=== PATIENT | male | born 1965 | race Caucasian/White ===

== ENCOUNTER 2017-04-03 21:35 | Inpatient (IN) | payer OTHER ==
[~2017-04-03] VITALS: Ht 182.9 cm; Wt 88.5 kg
--- NOTE | 2017-04-03 23:00 | NUR ---
PRE-ADMISSION NOTE Px is a 51 y/o male, seen at intake, A&Ox4, no SOB very anxious and nauseated. Discussed with patient the admission policies of the unit. Patient is coherent and able to respond to questions appropriately. Px is on wheelchair duty to unsteady gait and intoxication. Vital signs taken and as follows: BP: 134/88, P: 118, R: 18, O2: 97%, T: 98.7, PA: 3. Px verbalized understanding of instructions and teachings regarding disposal of narcotic and other controlled home medications, unit protocols such as taking of vital signs Q4H and handling and disposal of contraband. We'll continue with admission upon px's arrival on the unit.
[2017-04-04] VITALS: BP 151/101
[2017-04-04] MEDS ORDERED: LORAZEPAM 1 MG TABLET PO PRN
[2017-04-04] MEDS ORDERED: DICYCLOMINE HCL 20 MG TABLET PO PRN
[2017-04-04] MEDS ORDERED: MAG HYDROX/AL HYDROX/SIMETH 30 ML LIQUID UDC PO PRN
[2017-04-04] MEDS ORDERED: IV NORMAL SALINE 100 ML BAG IV SCH
[2017-04-04] MEDS ORDERED: MAGNESIUM HYDROXIDE 30 ML LIQUID UDC PO PRN
[2017-04-04] MEDS ORDERED: ONDANSETRON 4 MG/2 ML VIAL IM PRN
[2017-04-04] MEDS ORDERED: THIAMINE HCL 200 MG/2 ML VIAL IM ONE
[2017-04-04] MEDS ORDERED: MIRALAX 17 GM POWD.PACK PO PRN
[2017-04-04] MEDS ORDERED: LORAZEPAM 2 MG/1 ML VIAL IM PRN
[2017-04-04] MEDS ORDERED: LOPERAMIDE HCL 2 MG CAPSULE PO PRN ×2
--- NOTE | 2017-04-04 | NUR ---
ADMISSION NOTES Debra is a 51 y/o male admitted on 04/03/17 for ETOH dependence, arrived on the unit at 2332. Px has allergies to Vicodin, had 1x seizure last 3 or 4 years ago. Px was able to provide UDS. Upon admission CIWA 21, BP: 151/101, P: 120, R: 18, O2: 97%, T: 97.7, PA: 3. Weight 195, height 6. Px reports he does have a PCP Dr. Lidia Box. Px smokes 1 pack daily, denies being hospitalized within past 30 days. Px is able to understand and respond to all questions pertaining to his hospitalization. Substance Abuse History is as follows: 1. Vodka 1 L daily for 8 straight days. Last drink 04/03/2017 1 L. Px was drinking for 30 years. Pxs longest sober period was 19 years from 1980 to 1999. Treatment history: Debra reports 1st detox tx was on December 2016, cant recall the place. PMH: Anxiety, depression, DM, seizure, HTN, asthma, pancreatitis. Px brought his medications for reconciliation. Upon assessment, px is A&Ox4, px is moderately intoxicated, presents with high anxiety, skin is flushed, and emeses. Respirations even and unlabored. Denies SOB, chest pain, N/V/D. Bowel sounds active x 4, abdomen soft. PERRLA. Skin intact, no open wounds noted. Px denies SI/HI. Educational information provided and left at bedside. Px oriented to room and encouraged to notify staff with any concerns. Safety measures in place. Call light within reach, side rails up padded x 2, bed locked and in low position. We'll continue to monitor.
--- NOTE | 2017-04-04 00:02 | NUR ---
Patient had multiple episodes of vomiting. Initiated 1:1 for safety. [place] at bedside. Notified Dr. Stack. he gave orders for Zofran 4mg IM q6h PRN and IV NS 150mL/hr. Orders were read back and verified.
[2017-04-04] MEDS ORDERED: ONDANSETRON 4 MG/2 ML VIAL ONE (00:22)
[2017-04-04] MEDS ORDERED: AMLO10TA2 PO (00:45)
[2017-04-04] MEDS ORDERED: ATOR40TA PO ×2 (00:45)
[2017-04-04] MEDS ORDERED: INSU100V11 (00:45)
[2017-04-04] MEDS ORDERED: LISI40TA4 PO (00:45)
[2017-04-04] MEDS ORDERED: FLUO40CA49 PO (00:45)
[2017-04-04] MEDS ORDERED: INSU200I SQ (00:45)
[2017-04-04] MEDS ORDERED: METO-306 PO (00:45)
[2017-04-04] MEDS ORDERED: FURO40TA5 PO (00:45)
[2017-04-04] MEDS ORDERED: GLIP5TAB26 PO (00:45)
[2017-04-04] MEDS ORDERED: INSU100V11 SQ (00:45)
[2017-04-04] MEDS ORDERED: AMYL1CAP58 PO (00:45)
[2017-04-04] MEDS ORDERED: INSU100I19 SQ (00:45)
--- NOTE | 2017-04-04 00:53 | NUR ---
RN note One-time Ativan Pt noted to have jerking movement, with increasing anxiety and agitation. Notified Dr. Stack and he ordered Ativan 2 mg one-time PO. Primary nurse to administer.
[2017-04-04] MEDS ORDERED: LORAZEPAM 1 MG TABLET PO ONE (01:00)
[2017-04-04 01:06] LABS: BASOPHILS % (AUTO) 0.7 % (0.0-2.0); BILIRUBIN,TOTAL 1.6 mg/dL (0.2-1.0); EOSINOPHILS % (AUTO) 0.7 % (0.0-7.0); LYMPHOCYTES # (AUTO) 1.2 K/UL (0.8-4.8); LYMPHOCYTES % (AUTO) 18.3 % (20.5-51.5); MAGNESIUM 1.9 mg/dL (1.8-2.4); MEAN CORPUSCULAR HEMOGLOBIN 29.6 UUG (27.0-31.0); MEAN CORPUSCULAR HGB CONC 33 g/dL (32.0-37.0); MEAN CORPUSCULAR VOLUME 88.6 FL (82.0-92.0); MONOCYTES # (AUTO) 0.4 K/UL (0.1-1.30); MONOCYTES % (AUTO) 5.6 % (0.0-11.0); NEUTROPHILS # (AUTO) 5.1 K/UL (1.8-8.9); NEUTROPHILS % (AUTO) 74.7 % (38.5-71.5); PLATELET COUNT (AUTO) 121 K/UL (150-450); POTASSIUM 3.6 mmol/L (3.5-5.1); RED BLOOD CELL COUNT(AUTO) 5.41 MIL/UL (4.7-6.1); TOTAL PROTEIN, SERUM 7.3 g/dL (6.4-8.2); WHITE BLOOD COUNT (AUTO) 6.7 K/UL (4.0-11.2)
[2017-04-04] MEDS ORDERED: THIAMINE HCL 200 MG/2 ML VIAL ONE (01:12)
[2017-04-04] MEDS ORDERED: LORAZEPAM 1 MG TABLET ONE ×2 (01:12→05:14)
[2017-04-04 01:23] LABS: *AMPHETAMINE, URINE NEGATIVE (NEGATIVE); *BARBITURATE, URINE NEGATIVE (NEGATIVE); *CANNABINOID, URINE NEGATIVE (NEGATIVE); *COCCAINE, URINE NEGATIVE (NEGATIVE); *OPIATE, URINE NEGATIVE (NEGATIVE); *PHENCYCLIDINE SCREEN,URINE NEGATIVE (NEGATIVE)
[2017-04-04] MEDS ORDERED: IV NS 1000 ML 1,000 ML IV PRN (01:30)
--- NOTE | 2017-04-04 01:45 | NUR ---
IV Access Peripheral IV access started on right dorsal hand aseptically 22 G, with good blood return, flushed with 10 cc NS. Px tolerated well. We'll continue to monitor.
--- NOTE | 2017-04-04 01:51 | NUR ---
IVF NS IVF NS 1 L hooked as hydration running at 150 cc/hr every 6 hours PRN. We'll continue to monitor.
[2017-04-04] MEDS ORDERED: DEXTROSE 50% 50 ML DISP.SYRIN IV PRN (03:00)
[2017-04-04] MEDS: BLOOD SUGAR DIAGNOSTIC 1 EACH STRIP VI SCH ×5 (03:42→21:13)
--- NOTE | 2017-04-04 03:42 | NUR ---
Accucheck Blood sugar 277 mg/dl. Humulin R 6 "u" given SQ on right deltoid. We'll continue to monitor.
[2017-04-04] MEDS: INSULIN REGULAR, HUMAN 300 UNIT/3 ML VIAL SQ PRN ×4 (03:54→21:01)
[2017-04-04 04:00] VITALS: BP 145/91
[2017-04-04] MEDS ORDERED: INSULIN REGULAR, HUMAN 300 UNIT/3 ML VIAL ONE (04:05)
[2017-04-04] MEDS: LORAZEPAM 1 MG TABLET PO PRN ×2 (05:04→09:07)
--- NOTE | 2017-04-04 05:04 | NUR ---
PRN Ativan Px was very anxious and in pain 6-12/08. CIWA 16. Ativan 1 mg/tab, 2 tabs given PO as PRN med. We'll continue to monitor.
[2017-04-04] MEDS: IBUPROFEN 400 MG TABLET PO PRN ×2 (05:09→21:04)
[2017-04-04] MEDS: ACETAMINOPHEN 325 MG TABLET PO PRN (05:09)
--- NOTE | 2017-04-04 05:09 | NUR ---
PRN Motrin and Tylenol Px has pain on left side of body. Motrin 400 mg/tab, 1 tab and Tylenol 325 mg/tab, 2 tabs given PO as PRN meds. We'll continue to monitor.
[2017-04-04] MEDS ORDERED: IBUPROFEN 400 MG TABLET ONE (05:24)
[2017-04-04] MEDS ORDERED: ACETAMINOPHEN 325 MG TABLET ONE (05:24)
--- NOTE | 2017-04-04 07:30 | NUR ---
START OF SHIFT Pt 51 y/o male admitted for etoh dependence. Pt received in room on bed with eyes closed resting, but easily arousable to name. Pt alert and oriented to name, place, and time. Perrla. Skin warm and mosit to touch. Respirations even and unlabored. Bilateral hand tremors noted. IV was dislodged by pt by accident. Pt restart peripheral IV. Pt with sitter 1:1 for safety for unsteady gait and pt is aware of 1:1. No signs/ symptoms of hypo/ hyperglycemia noted this morning. I was reported that pt slept for 1.5 hours last night. Bed on lowest position with side rails x2 up for safety. Call light within reach. No distress noted at this time.
--- NOTE | 2017-04-04 07:40 | NUR ---
End of Shift Notes Debra is a 51 y/o male admitted on 04/03/17 for ETOH dependence. Px has allergies to Vicodin, had 1x seizure last 3 or 4 years ago. PMH: Anxiety, depression, DM, seizure, HTN, asthma, pancreatitis. Px brought his medications for reconciliation. Upon assessment, px is A&Ox4. Respirations even and unlabored. At 0145, Peripheral IV access started on right dorsal hand aseptically 22 G, with good blood return, flushed with 10 cc NS. Px tolerated well. IVF NS 1 L hooked as hydration running at 150 cc/hr every 6 hours PRN. At 0345, Blood sugar 277 mg/dl. Humulin R 6 "u" given SQ on right deltoid. At 0504, Px was very anxious and in pain 6-8/10. CIWA 16. Ativan 1 mg/tab, 2 tabs given PO as PRN med. At 0509, Px has pain on left side of body. Motrin 400 mg/tab, 1 tab and Tylenol 325 mg/tab, 2 tabs given PO as PRN med. Safety measures in place. Call light within reach, side rails up padded x 2, bed locked and in low position. We'll continue to monitor.
[2017-04-04 08:00] VITALS: BP 103/53
[2017-04-04] MEDS: ONDANSETRON 4 MG/2 ML VIAL IM PRN ×2 (08:41→18:20)
--- NOTE | 2017-04-04 08:41 | NUR ---
PRN Pt with multiple vomit episodes. Zofran IM prn per MD order given and tolerated well.
[2017-04-04] MEDS ORDERED: TUBERCULIN,PURIF.PROT.DERIV. 5 TU/0.1 ML TEST ID ONE (09:00)
[2017-04-04] MEDS: FOLIC ACID 1 MG TABLET PO SCH (09:07)
--- NOTE | 2017-04-04 09:07 | NUR ---
PRN Pt with ciwa=17. Ativan 2mg po prn per MD order given and tolerated well.
[2017-04-04] MEDS: MULTIVITAMINS,THERAPEUTIC TABLET PO SCH (09:08)
[2017-04-04] MEDS: DOCUSATE SODIUM 250 MG CAPSULE PO SCH (09:08)
[2017-04-04] MEDS: THIAMINE HCL 100 MG TABLET PO SCH (09:08)
--- NOTE | 2017-04-04 09:41 | NUR ---
PRN EVAL Pt with no vomit episode.
--- NOTE | 2017-04-04 10:07 | NUR ---
PRN EVAL Pt with ciwa=4
[2017-04-04] MEDS ORDERED: METOPROLOL SUCCINATE XL 100 MG TAB.SR.24H PO SCH (10:30)
[2017-04-04] MEDS: AMLODIPINE 10 MG TABLET PO SCH (11:56)
[2017-04-04 12:00] VITALS: BP 141/92
[2017-04-04] MEDS: LIPASE/PROTEASE/AMYLASE 4200 UNITS CAPSULE.DR PO SCH ×2 (12:01→17:47)
[2017-04-04] MEDS: glipiZIDE XL 5 MG TABCR PO SCH (12:02)
[2017-04-04] MEDS: METOPROLOL SUCCINATE XL 50 MG TAB.SR.24H PO SCH (12:02)
[2017-04-04] MEDS: LORAZEPAM 1 MG TABLET PO SCH ×3 (12:20→21:04)
[2017-04-04] MEDS: INSULIN DETEMIR 300 UNIT/3 ML CARTRIDGE SQ SCH (12:34)
[2017-04-04] MEDS: ONDANSETRON ODT 4 MG TAB.RAPDIS SL PRN (14:23)
--- NOTE | 2017-04-04 14:23 | NUR ---
PRN Pt with nausea noted. Zofran odt prn per MD order given and tolerated well.
[2017-04-04] MEDS: FLUOXETINE HCL 20 MG CAPSULE PO SCH (14:46)
[2017-04-04] MEDS: HYDROXYZINE PAMOATE 25 MG CAPSULE PO PRN ×2 (14:47→22:31)
--- NOTE | 2017-04-04 14:47 | NUR ---
PRN Pt with ciwa=10. Ativan 1mg po prn per MD order given and tolerated well.
--- NOTE | 2017-04-04 15:23 | NUR ---
PRN EVAL Pt denies any nausea at this time.
--- NOTE | 2017-04-04 15:47 | NUR ---
PRN EVAL Pt with ciwa=4.
[2017-04-04 16:00] VITALS: BP 144/83
[2017-04-04] MEDS ORDERED: NICOTINE POLACRILEX 4 MG GUM-PK OF TEN BC PRN (17:30)
[2017-04-04] MEDS: NICOTINE 14 MG/24HR PATCH TD SCH (17:48)
--- NOTE | 2017-04-04 18:49 | NUR ---
END OF SHIFT PT IS A/O X4, RESPIRATIONS EVEN AND UNLABORED. PT REPORTS HIGH ANXIETY THROUGHOUT THE DAY, RESTLESSNESS, BODY ACHES, INTERMITTENT CHILLS AND SWEATING. PT APPEARS AGITATED AND TREMORS ARE NOTED. PT LAST CIWA IS 13 AT 1600. PT HAD INTERMITTENT N/V THROUGHOUT THE DAY AND WAS GIVEN ZOFRAN PRN; PT REPORTED EFFECTIVE UPON REASSESSMENT. ENCOURAGED PT TO CONSUME MORE FLUIDS TO PROMOTE DETOX PROCESS AND REHYDRATION. SZ AND FALL PRECAUTIONS TAKEN. SIDE RAILS UP X2, CALL LIGHT WITHIN REACH. WILL GIVE ALL ENDORSEMENT TO RUG RENOVATOR NURSE. Addendum: 04/04/17 at 1851 by KANU ARTIS RN *
[2017-04-04] MEDS: CLONIDINE HCL 0.1 MG TABLET PO PRN (18:57)
--- NOTE | 2017-04-04 18:57 | NUR ---
PRN CLONIDINE O.1 MG PO PRN GIVEN AT 1857 FOR ANXIETY, RESTLESSNESS, AND SWEATING.
[2017-04-04 20:00] VITALS: BP 138/83
--- NOTE | 2017-04-04 20:00 | NUR ---
Start of Shift Notes Received a 51 y/o male admitted 04/03/2017 for etoh dependence. Px is Full Code, has allergies on Vicodin and on DM diet. Px with sitter 1:1 for safety for unsteady gait. During the rounds at 2000, px complained of high anxiety, tremors, H/A and body aches of 8-9/10. Bed on lowest position with side rails x2 up for safety. Call light within reach. We'll continue to monitor.
[2017-04-04] MEDS ORDERED: GABAPENTIN 300 MG CAPSULE PO SCH (21:00)
--- NOTE | 2017-04-04 21:00 | NUR ---
Accucheck BS= 169 mg/dl. Humulin R 3 "u" given SQ on abdomen. We'll continue to monitor.
[2017-04-04] MEDS: LISINOPRIL 20 MG TABLET PO SCH (21:03)
--- NOTE | 2017-04-04 22:31 | NUR ---
PRN Vistaril Px verbalized high anxiety and wanted to sleep. Vistaril 25 mg/cap, 1 cap given PO as PRN med. We'll continue to monitor.
[2017-04-05] VITALS: BP 103/60
[2017-04-05] MEDS ORDERED: TRAZODONE 50 MG TABLET PO SCH (00:15)
[2017-04-05] MEDS ORDERED: TRAZODONE 50 MG TABLET PO ONE (00:15)
--- NOTE | 2017-04-05 00:23 | NUR ---
Trazodone 1x dose Px verbalized desire to sleep. Charge nurse Michele, pull out 1x dose of Trazodone 50 mg, given PO. We'll continue to monitor.
[2017-04-05] MEDS ORDERED: TRAZODONE 50 MG TABLET ONE (00:34)
[2017-04-05 04:00] VITALS: BP 123/68
--- NOTE | 2017-04-05 06:00 | NUR ---
PRN Imodium Px had 2 bouts of loose to watery stools. Imodium 2 mg/cap, 2 caps given PO as PRN med. We'll continue to monitor.
[2017-04-05 07:07] LABS: HEPATITIS B SURFACE AG Negative (Negative)
--- NOTE | 2017-04-05 07:08 | NUR ---
End of Shift Notes 51 y/o male admitted 04/03/2017 for etoh dependence. Px is Full Code, has allergies on Vocodin and on DM diet. Px with sitter 1:1 for safety for unsteady gait. During the shift, px complained of high anxiety, tremors, H/A and body aches of 8-9/10. BS= 169 mg/dl. Humulin R 3 "u" given SQ on abdomen. Px verbalized high anxiety and wanted to sleep. Vistaril 25 mg/cap, 1 cap given PO as PRN med. At 0023, Px verbalized desire to sleep. Charge nurse Michele, pull out 1x dose of Trazodone 50 mg, given PO. At 0600, Px had 2 bouts of loose to watery stools. Imodium 2 mg/cap, 2 caps given PO as PRN med. Oral intake of 1,800 ml, voided 8x, bm 2x. Slept for 2 hours. Bed on lowest position with side rails x2 up for safety. Call light within reach. We'll continue to monitor.
--- NOTE | 2017-04-05 07:30 | NUR ---
START OF SHIFT Pt 51 y/o male admitted for etoh dependence. Pt on a 5 day Ativan taper. Pt resting in bed. Pt on 1:1 for unsteady gait and hallucinations. No hallucinations observed at this time. Pt alert and oriented X4. Color good, skin warm and dry. Respirations even and unlabored. Safety precautions observed. Call light within reach. BHT at bedside.
--- NOTE | 2017-04-05 07:45 | NUR ---
Accucheck 345 8 units Humulin insulin administered LD
[2017-04-05] MEDS: INSULIN REGULAR, HUMAN 300 UNIT/3 ML VIAL SQ PRN ×3 (07:59→20:53)
[2017-04-05] MEDS: LIPASE/PROTEASE/AMYLASE 4200 UNITS CAPSULE.DR PO SCH ×3 (08:02→16:40)
[2017-04-05] MEDS: glipiZIDE XL 5 MG TABCR PO SCH (08:02)
[2017-04-05] MEDS: BLOOD SUGAR DIAGNOSTIC 1 EACH STRIP VI SCH ×4 (08:04→20:50)
[2017-04-05 08:32] VITALS: BP 116/68
[2017-04-05] MEDS: GABAPENTIN 300 MG CAPSULE PO SCH ×3 (08:50→20:45)
[2017-04-05] MEDS: FLUOXETINE HCL 20 MG CAPSULE PO SCH (08:50)
[2017-04-05] MEDS: FUROSEMIDE 40 MG TABLET PO SCH (08:51)
[2017-04-05] MEDS: FOLIC ACID 1 MG TABLET PO SCH (08:51)
[2017-04-05] MEDS: AMLODIPINE 10 MG TABLET PO SCH (08:51)
[2017-04-05] MEDS: THIAMINE HCL 100 MG TABLET PO SCH (08:51)
[2017-04-05] MEDS: LORAZEPAM 1 MG TABLET PO SCH ×3 (08:51→20:45)
[2017-04-05] MEDS: DOCUSATE SODIUM 250 MG CAPSULE PO SCH (08:51)
[2017-04-05] MEDS: MULTIVITAMINS,THERAPEUTIC TABLET PO SCH (08:51)
[2017-04-05] MEDS: NICOTINE 14 MG/24HR PATCH TD SCH (08:52)
[2017-04-05] MEDS: METOPROLOL SUCCINATE XL 50 MG TAB.SR.24H PO SCH (08:52)
[2017-04-05] MEDS: INSULIN DETEMIR 300 UNIT/3 ML CARTRIDGE SQ SCH (08:55)
[2017-04-05 09:37] LABS: BILIRUBIN,DIRECT 0.5 mg/dL (0.0-0.2); BILIRUBIN,TOTAL 1.7 mg/dL (0.2-1.0); PHOSPHOROUS 3.1 mg/dL (2.5-4.9); TOTAL PROTEIN, SERUM 6.4 g/dL (6.4-8.2)
[2017-04-05 10:42] LABS: BASOPHILS % (AUTO) 1.1 % (0.0-2.0); EOSINOPHILS # (AUTO) 0.1 K/uL (0.0-0.7); EOSINOPHILS % (AUTO) 3.4 % (0.0-7.0); HEMATOCRIT 39.4 % (36.7-47.1); HEMOGLOBIN 13.6 g/dL (12.5-16.3); LYMPHOCYTES # (AUTO) 0.9 K/uL (20.0-40.0); LYMPHOCYTES % (AUTO) 24.9 % (20.5-51.5); MEAN CORPUSCULAR HEMOGLOBIN 30.5 uug (23.8-33.4); MEAN CORPUSCULAR HGB CONC 35 g/dL (32.5-36.3); MEAN CORPUSCULAR VOLUME 88.5 fL (73.0-96.2); MONOCYTES # (AUTO) 0.2 K/uL (2.0-10.0); MONOCYTES % (AUTO) 6.7 % (0.0-11.0); NEUTROPHILS # (AUTO) 2.4 K/uL (1.8-8.9); NEUTROPHILS % (AUTO) 63.9 % (38.5-71.5); RED BLOOD CELL COUNT(AUTO) 4.45 MIL/uL (4.06-5.63); WHITE BLOOD COUNT (AUTO) 3.7 K/uL (3.6-10.2)
[2017-04-05 10:57] LABS: PLATELET COUNT (AUTO) 66 K/uL (152-348)
[2017-04-05 11:12] LABS: BAND % (MANUAL) 9 % (0-10); EOSINOPHILS % (MANUAL) 2 % (0-8); LYMPHOCYTES % (MANUAL) 25 % (20-40); MONOCYTES % (MANUAL) 6 % (2-10); NEUTROPHILS % (MANUAL) 58 % (42-75)
--- NOTE | 2017-04-05 11:41 | NUR ---
ACCucheck 85 no insulin administered.
[2017-04-05 12:57] VITALS: BP 144/86
[2017-04-05] MEDS ORDERED: LORAZEPAM 1 MG TABLET PO PRN (14:15)
[2017-04-05] MEDS ORDERED: PNEUMOCOCCAL 23-VAL P-SAC VAC 0.5 ML VIAL IM ONE (15:00)
[2017-04-05] MEDS ORDERED: INFLUENZA VACCINE 2017-2018 0.5 ML DISP.SYRIN IM ONE (15:00)
--- NOTE | 2017-04-05 16:30 | NUR ---
Accucheck 197 3 units Humulin insulin given. Tsvi said pt was hallucinating in intake office.
[2017-04-05 17:39] VITALS: BP 124/86
--- NOTE | 2017-04-05 18:34 | NUR ---
END OF SHIFT NOTE: Report given to fast food shift lead nurse. Pt 51 y/o male admitted for ETOH dependence. Pt on a 5 day Ativan taper. Tolerating well. Pt resting in bed. Pt on 1:1 for unsteady gait and hallucinations. Pt having on and off auditory and visual hallucinations. Pt alert and oriented X4. Color good, skin warm and dry. Respirations even and unlabored. Safety precautions observed. Vital signs have remained stable throughout shift. Last CIWA 7 @ 1500. Last Accucheck 197 @ 1630. Call light within reach. BHT at bedside.
--- NOTE | 2017-04-05 19:15 | NUR ---
START OF SHIFT Received 51 year old male patient admitted on 04/03/17 for ETOH dependency. Pt is full code with allergy to Vicodin. He reports a PMHx of anxiety, depression, DM, HTN, pancreatitis, asthma, and seizure (3-4 years ago). He reports using ETOH (vodka) 1L daily at this rate for 8 days. Last drink was 1L on 04/03/17. Pt currently receiving 5 day Ativan taper and tolerating well. Per endorsement, pt on 1:1 for unsteady gait and hallucinations. Pt easily redirected. Pt is alert and oriented x1, noted to be confused but is able to be redirected. Safety measures in place. Will continue to monitor.
[2017-04-05 20:00] VITALS: BP 182/107
[2017-04-05] MEDS: LISINOPRIL 20 MG TABLET PO SCH (20:46)
--- NOTE | 2017-04-05 21:45 | NUR ---
Code Nicola/Behavioral: Patient noted to be confused with auditory and visual hallucinations. Patient disoriented to place and time. Patient states that he wanted to leave AMA. Patient began to walk to elevators and stairwell. Brian Petersen called at 21:45.
--- NOTE | 2017-04-05 21:50 | NUR ---
Crisis Team Evaluation/5150 Hold: Crisis geography faculty member Gurmeet contacted for evaluation at 21:50. Dr Choudhary and Dr Johnson made aware. Gurmeet on the unit at 22:15 and patient placed on 5150 hold at 22:25.
[2017-04-05] MEDS ORDERED: OLANZAPINE ZYDIS 5 MG TAB.RAPDIS PO ONE (22:00)
--- NOTE | 2017-04-05 22:00 | NUR ---
RN note One-time Zyprexa Zydis Pt noted to be agitated and non-cooperative. Dr. Johnson notified and he ordered one-time of Zyprexa Zydis 5 mg PO. Primary RN to administer. Addendum: 04/06/17 at 0203 by JOJO LARIOS RN Additional information: Dr. Johnson also ordered for repeat of Zyprexa Zydis 5 mg PO after at least 1 hour if patient is still agitated.
[2017-04-05] MEDS: LORAZEPAM 1 MG TABLET PO PRN (22:03)
--- NOTE | 2017-04-05 22:03 | NUR ---
PRN ATIVAN Pt complains of auditory and visual hallucinations. Pt is able to be redirected back to reality. Pt verbalized that he is aware that he is having hallucinations. CIWA:16. PRN Ativan 2 mg administered as ordered. Safety measures in place. Will monitor effectiveness.
--- NOTE | 2017-04-05 22:04 | NUR ---
ONE TIME ZYPREXA One time Zyprexa 5 mg administered as ordered for agitation/hallucinations. Will monitor effectiveness.
[2017-04-05] MEDS ORDERED: OLANZAPINE ZYDIS 5 MG TAB.RAPDIS ONE (22:18)
[2017-04-05] MEDS ORDERED: hydrALAZINE HCL 50 MG TABLET PO PRN (23:00)
--- NOTE | 2017-04-05 23:03 | NUR ---
PRN ATIVAN REASSESSMENT PRN medication not effective. Pt reports that he is still experiencing hallucinations. Pt verbalized " I see my brother running in the desert. It looks like a cartoon." Redirected pt back to reality. Pt able to verbalize that he is in a hospital. Safety measures in place. Will monitor closely.
--- NOTE | 2017-04-05 23:04 | NUR ---
ONE TIME ZYPREXA REASSESSMENT Medication not effective. Pt noted to be still agitated and experiencing hallucinations. Will monitor.
[2017-04-05] MEDS ORDERED: LORAZEPAM 1 MG TABLET PO ONE (23:15)
--- NOTE | 2017-04-05 23:40 | NUR ---
ONE TIME ATIVAN Pt still noted with hallucinations and tremors. Pt is easily redirected and is not combative. MD with order for Ativan 2 mg x1. Will monitor effectiveness.
[2017-04-05] MEDS ORDERED: LORAZEPAM 1 MG TABLET ONE (23:54)
[2017-04-06 00:15] VITALS: BP 142/94
--- NOTE | 2017-04-06 00:40 | NUR ---
ONE TIME ATIVAN REASSESSMENT Medication not effective. Pt still with hallucinations. Noted to be hearing voices and seeing things. Pt is safe with 1:1 sitter at bedside. Redirected pt. Will monitor.
[2017-04-06] MEDS ORDERED: OLANZAPINE ZYDIS 5 MG TAB.RAPDIS PO ONE (00:45)
--- NOTE | 2017-04-06 00:46 | NUR ---
ONE TIME ZYPREXA Pt still noted with agitation and hallucinations. Zyprexa Zydis 5 mg administered as ordered. Will monitor effectiveness.
[2017-04-06] MEDS ORDERED: OLANZAPINE ZYDIS 5 MG TAB.RAPDIS ONE (00:56)
--- NOTE | 2017-04-06 01:46 | NUR ---
ONE TIME ZYPREXA REASSESSMENT Medication not effective. Pt still visually hallucinating and talking to people that are not in the room. Per CAR DRIVER, pt continuously getting out of bed. Pt assisted safely back to bed. Will monitor.
[2017-04-06] MEDS: LORAZEPAM 1 MG TABLET PO PRN (02:46)
--- NOTE | 2017-04-06 02:50 | NUR ---
PRN ATIVAN Pt noted with anxiety, agitation and visual/auditory hallucinations. CIWA:20. PRN Ativan 2 mg administered as ordered. Will monitor effectiveness.
--- NOTE | 2017-04-06 03:50 | NUR ---
ATIVAN REASSESSMENT PRN medication somewhat effective. Pt still hallucinating but appears drowsy, reports he wants to sleep. Safety measures in place. Will monitor.
[2017-04-06 04:00] VITALS: BP 135/86
--- NOTE | 2017-04-06 07:18 | NUR ---
END OF SHIFT Pt is a 51 year old male patient admitted on 04/03/17 for ETOH dependency. Pt is full code with allergy to Vicodin. Pt remains on 1:1 for unsteady gait and hallucinations. He received several PRNs of Ativan and two onetime orders of Zyprexa 5mg. At 0500 pt fell asleep. He slept a total of 45 min, Intake:3355mL, Void: x9, BM:0, CIWA:15. Pt remains alert and oriented x1, noted to be confused but is able to be redirected. Safety measures in place. Endorsed to AM shift.
--- NOTE | 2017-04-06 07:19 | NUR ---
Start of Shift Notes: Received patient in her room. Alert, oriented x 1. Verbally responsive. Noted with mumbled speech. On 1:1. Respirations even and unlabored. No SOB noted. Skin warm and dry to touch. Abdomen soft and non-distended with (+) BS in all 4 quadrants. No complains of N/V/D or constipation noted. Bladder non-distended. No complains of dysuria noted. Ambulatory with unsteady gait. Patient is a 51 year old male admitted for ETOH dependence who was placed on a 5-day Ativan taper as ordered. No adverse reactions noted. Has past medical hx of anxiety and depression. Allergic to Vicodin. FULL CODE. Regular diet. PRN Ativan, Zyprexa x 2 were given during the night due to aggression/hallucinations. Last BS 360. Covered with RI per SS. No diabetic reactions noted. On fall and seizure precautions. Educated patient on the current plan of care. Will continue to monitor.
[2017-04-06] MEDS: LIPASE/PROTEASE/AMYLASE 4200 UNITS CAPSULE.DR PO SCH ×3 (07:40→16:45)
[2017-04-06] MEDS: BLOOD SUGAR DIAGNOSTIC 1 EACH STRIP VI SCH ×4 (07:40→21:01)
[2017-04-06 08:00] VITALS: BP 118/76
[2017-04-06] MEDS: FOLIC ACID 1 MG TABLET PO SCH (08:58)
[2017-04-06] MEDS: AMLODIPINE 10 MG TABLET PO SCH (08:58)
[2017-04-06] MEDS: GABAPENTIN 300 MG CAPSULE PO SCH ×3 (08:58→20:56)
[2017-04-06] MEDS: FLUOXETINE HCL 20 MG CAPSULE PO SCH (08:59)
[2017-04-06] MEDS: THIAMINE HCL 100 MG TABLET PO SCH (08:59)
[2017-04-06] MEDS: DOCUSATE SODIUM 250 MG CAPSULE PO SCH (08:59)
[2017-04-06] MEDS: LORAZEPAM 1 MG TABLET PO SCH ×4 (08:59→20:56)
[2017-04-06] MEDS: NICOTINE 14 MG/24HR PATCH TD SCH (08:59)
[2017-04-06] MEDS: MULTIVITAMINS,THERAPEUTIC TABLET PO SCH (08:59)
[2017-04-06] MEDS: INSULIN DETEMIR 300 UNIT/3 ML CARTRIDGE SQ SCH (09:01)
[2017-04-06] MEDS: glipiZIDE XL 5 MG TABCR PO SCH (09:02)
[2017-04-06] MEDS: FUROSEMIDE 40 MG TABLET PO SCH (09:02)
[2017-04-06] MEDS: INSULIN REGULAR, HUMAN 300 UNIT/3 ML VIAL SQ PRN ×4 (09:02→21:02)
[2017-04-06] MEDS: METOPROLOL SUCCINATE XL 50 MG TAB.SR.24H PO SCH (09:03)
[2017-04-06 11:29] LABS: BASOPHILS % (AUTO) 0.6 % (0.0-2.0); EOSINOPHILS # (AUTO) 0.1 K/uL (0.0-0.7); EOSINOPHILS % (AUTO) 3.8 % (0.0-7.0); LYMPHOCYTES # (AUTO) 0.7 K/UL (0.8-4.8); LYMPHOCYTES % (AUTO) 20.4 % (20.5-51.5); MEAN CORPUSCULAR HGB CONC 34 g/dL (32.0-37.0); MEAN CORPUSCULAR VOLUME 88.7 FL (82.0-92.0); MONOCYTES # (AUTO) 0.4 K/UL (0.1-1.30); MONOCYTES % (AUTO) 10.4 % (0.0-11.0); NEUTROPHILS # (AUTO) 2.2 K/UL (1.8-8.9); NEUTROPHILS % (AUTO) 64.8 % (38.5-71.5); WHITE BLOOD COUNT (AUTO) 3.4 K/UL (4.0-11.2)
[2017-04-06 11:41] LABS: BILIRUBIN,DIRECT 0.3 mg/dL (0.0-0.2); BILIRUBIN,TOTAL 1.3 mg/dL (0.2-1.0); CREATININE 0.9 mg/dL (0.6-1.3); MAGNESIUM 1.8 mg/dL (1.8-2.4); PHOSPHOROUS 4.6 mg/dL (2.5-4.9); POTASSIUM 3.9 mmol/L (3.5-5.1); TOTAL PROTEIN, SERUM 6.4 g/dL (6.4-8.2)
[2017-04-06 11:44] LABS: HEMOGLOBIN 12.3 G/DL (14.0-18.0); RED BLOOD CELL COUNT(AUTO) 4.11 MIL/UL (4.7-6.1)
[2017-04-06 11:45] LABS: HEMATOCRIT 36.5 % (40-50); PLATELET COUNT (AUTO) 54 K/UL (150-450)
[2017-04-06 12:00] VITALS: BP 128/88
[2017-04-06 12:03] LABS: BAND % (MANUAL) 6 % (0-10); EOSINOPHILS % (MANUAL) 4 % (0-8); LYMPHOCYTES % (MANUAL) 22 % (20-40); MONOCYTES % (MANUAL) 11 % (2-10); NEUTROPHILS % (MANUAL) 57 % (42-75)
--- NOTE | 2017-04-06 15:16 | NUR ---
Gabapentin at 1500 PO not administered: Patient seen laying in bed with eyes closed. Appears sound asleep. RR 16. Breathing even and unlabored. Gabapentin at 1500 PO held at this time.
[2017-04-06 16:00] VITALS: BP 109/67
--- NOTE | 2017-04-06 18:56 | NUR ---
End of Shift Notes: Patient continues to be on 5-day Ativan taper as ordered. No adverse reactions noted. VS monitored closely. No significant abnormalities noted. Withdrawal symptoms were closely monitored. Initial CIWA 14, patient presented with anxiety, agitation, tremors, AV hallucinations and disorientation. Last CIWA at 1600 . BS monitored closely q AC with RI coverage per SS. Last BS at 1630 185, covered with 3U of RI per SS. No diabetic reactions noted. For abdominal US tomorrow AM. To be on NPO status except meds post midnight. Patient compliant with diet and medication regimen. On 1:1 for unsteady gait and AV hallucinations. Still noted with on and off episodes of hallucinations by seeing lines and patterns on the wall and hearing a dog bar. However, by the end of the shift, patients mentation improved, oriented to person, time, and place and able to do additions. On fall and seizure precautions. Unable to participate in group and activities due to his withdrawal symptoms. Patient has been asleep for most of the shift 1500 Gabapentin held due to patient was sleeping. All needs met and attended. Will continue to monitor closely.
--- NOTE | 2017-04-06 19:15 | NUR ---
START OF SHIFT Received 51 year old male patient admitted on 04/03/17 for ETOH dependency. Pt is full code with allergy to Vicodin. He reports a PMHx of anxiety, depression, DM, HTN, pancreatitis, asthma, and seizure (3-4 years ago). He reports using ETOH (vodka) 1L daily at this rate for 8 days. Last drink was 1L on 04/03/17. Pt currently receiving 5 day Ativan taper and tolerating well. Pt on 1:1 and 5150 for unsteady gait and hallucinations. He is scheduled to have an abdominal ultra sound tomorrow morning. Pt will be NPO after midnight. Upon assessment, pt is alert and oriented x3. Safety measures in place. Will continue to monitor.
[2017-04-06 20:00] VITALS: BP 114/80
--- NOTE | 2017-04-06 20:35 | NUR ---
Communication: Dr Champion on the unit at 20:25 for hematology/oncology consult. Verbal order received for DIC profile, amylase, and lipase tomorrow morning. Dr Chamipon confirmed NPO and ABD US schedule for tomorrow, and requested nursing staff to request medical records from two hospital admissions - [facility] in [place] and [facility] in [place].
[2017-04-06] MEDS: LISINOPRIL 20 MG TABLET PO SCH (20:56)
[2017-04-07 00:30] VITALS: BP 110/75
[2017-04-07 04:00] VITALS: BP 125/83
[2017-04-07] MEDS: LORAZEPAM 1 MG TABLET PO PRN ×3 (05:37→23:20)
--- NOTE | 2017-04-07 05:37 | NUR ---
PRN ATIVAN Pt complains of anxiety, chills and agitation. CIWA:8. PRN Ativan 1 mg administered as ordered. Safety measures in place. Will monitor effectiveness.
--- NOTE | 2017-04-07 06:37 | NUR ---
PRN REASSESSMENT PRN medication not effective. Pt still reports anxiety/agitation. CIWA:8.
[2017-04-07] MEDS: ONDANSETRON ODT 4 MG TAB.RAPDIS SL PRN (06:54)
[2017-04-07] MEDS: CLONIDINE HCL 0.1 MG TABLET PO PRN (06:55)
--- NOTE | 2017-04-07 06:56 | NUR ---
PRN ZOFRAN/CLONIDINE Pt complains of nausea, diaphoresis, and anxiety. PRN Zofran and Clonidine administered as ordered. Will endorse to AM shift to monitor effectiveness.
--- NOTE | 2017-04-07 07:05 | NUR ---
END OF SHIFT Pt is a 51 year old male patient admitted on 04/03/17 for ETOH dependency. Pt is full code with allergy to Vicodin. He reports a PMHx of anxiety, depression, DM, HTN, pancreatitis, asthma, and seizure (3-4 years ago). He continues on a 5 day Ativan taper and tolerating well. He also continues on 1:1 and 5150. Pt reports decrease in auditory hallucinations and mild visual hallucination. He is scheduled to have an abdominal ultra sound today. At 0537 he received PRN Ativan. At 652 he received PRN Clonidine and Zofran. He slept a total of 8hrs, Intake: 300mL, Void: 0, BM:0, CIWA:8. Pt remains alert and oriented x3. Safety measures in place. Endorsed to AM shift.
--- NOTE | 2017-04-07 07:06 | NUR ---
Start of Shift Notes: Received patient in her room. Alert, oriented x 4. Verbally responsive. On 1:1. Respirations even and unlabored. No SOB noted. Skin warm and dry to touch. Abdomen soft and non-distended with (+) BS in all 4 quadrants. No complains of N/V/D or constipation noted. Bladder non-distended. No complains of dysuria noted. Ambulatory with unsteady gait. Patient is a 51 year old male admitted for ETOH dependence who was placed on a 5-day Ativan taper as ordered. No adverse reactions noted. Has past medical hx of anxiety and depression. Allergic to Vicodin. FULL CODE. Regular diet. No diabetic reactions noted. On fall and seizure precautions. Educated patient on the current plan of care. Encouraged oral fluid intake and encouraged group participation to learn new skills to prevent relapse. Will continue to monitor.
--- NOTE | 2017-04-07 07:54 | NUR ---
Re-assessment: Clonidine and Zofran Patient noted to appear calm and denies feeling nauseated at this time. PRN Clonidine and Zofran were effective.
[2017-04-07] MEDS: BLOOD SUGAR DIAGNOSTIC 1 EACH STRIP VI SCH ×4 (07:56→21:14)
[2017-04-07 08:00] VITALS: BP 137/86
[2017-04-07] MEDS: FOLIC ACID 1 MG TABLET PO SCH (08:04)
[2017-04-07] MEDS: LIPASE/PROTEASE/AMYLASE 4200 UNITS CAPSULE.DR PO SCH ×3 (08:04→16:36)
[2017-04-07] MEDS: THIAMINE HCL 100 MG TABLET PO SCH (08:05)
[2017-04-07] MEDS: GABAPENTIN 300 MG CAPSULE PO SCH ×2 (08:05→14:26)
[2017-04-07] MEDS: DOCUSATE SODIUM 250 MG CAPSULE PO SCH (08:05)
[2017-04-07] MEDS: LORAZEPAM 1 MG TABLET PO SCH ×2 (08:05→14:26)
[2017-04-07] MEDS: AMLODIPINE 10 MG TABLET PO SCH (08:05)
[2017-04-07] MEDS: FLUOXETINE HCL 20 MG CAPSULE PO SCH (08:05)
[2017-04-07] MEDS: NICOTINE 14 MG/24HR PATCH TD SCH (08:05)
[2017-04-07] MEDS: FUROSEMIDE 40 MG TABLET PO SCH (08:05)
[2017-04-07] MEDS: MULTIVITAMINS,THERAPEUTIC TABLET PO SCH (08:05)
[2017-04-07] MEDS: glipiZIDE XL 5 MG TABCR PO SCH (08:05)
[2017-04-07] MEDS: METOPROLOL SUCCINATE XL 50 MG TAB.SR.24H PO SCH (08:06)
[2017-04-07] MEDS: INSULIN DETEMIR 300 UNIT/3 ML CARTRIDGE SQ SCH (08:13)
[2017-04-07 09:10] LABS: EOSINOPHILS # (AUTO) 0.1 K/uL (0.0-0.7); EOSINOPHILS % (AUTO) 4.2 % (0.0-7.0); HEMATOCRIT 38.6 % (36.7-47.1); HEMOGLOBIN 13.1 g/dL (12.5-16.3); LYMPHOCYTES % (AUTO) 27.9 % (20.5-51.5); MEAN CORPUSCULAR HEMOGLOBIN 30.2 uug (23.8-33.4); MEAN CORPUSCULAR HGB CONC 34 g/dL (32.5-36.3); MEAN CORPUSCULAR VOLUME 88.8 fL (73.0-96.2); MONOCYTES # (AUTO) 0.4 K/uL (2.0-10.0); MONOCYTES % (AUTO) 10.9 % (0.0-11.0); NEUTROPHILS # (AUTO) 1.9 K/uL (1.8-8.9); PLATELET COUNT (AUTO) 64 K/uL (152-348); RED BLOOD CELL COUNT(AUTO) 4.35 MIL/uL (4.06-5.63); WHITE BLOOD COUNT (AUTO) 3.5 K/uL (3.6-10.2)
[2017-04-07 09:25] LABS: AMYLASE 18 U/L (25-115); LIPASE 45 U/L (73-393)
[2017-04-07 09:30] LABS: BILIRUBIN,DIRECT 0.3 mg/dL (0.0-0.2); BILIRUBIN,TOTAL 1.1 mg/dL (0.2-1.0); CREATININE 0.8 mg/dL (0.6-1.3); MAGNESIUM 1.8 mg/dL (1.8-2.4); PHOSPHOROUS 5.1 mg/dL (2.5-4.9); POTASSIUM 4.2 mmol/L (3.5-5.1); TOTAL PROTEIN, SERUM 6.4 g/dL (6.4-8.2)
--- NOTE | 2017-04-07 09:40 | NUR ---
Nursing note: US facilities maintenance technician (Dm) called the unit and reported that US will be done sometime after lunch and that patient is allowed to have breakfast tray at this time and will start to be on NPO after lunch. Patient denies any s/s of hypoglycemia and remains compliant with NPO except meds status.
[2017-04-07] MEDS: INSULIN REGULAR, HUMAN 300 UNIT/3 ML VIAL SQ PRN ×4 (09:53→21:07)
--- NOTE | 2017-04-07 09:55 | NUR ---
Insulin administration: Patient's breakfast tray was brought into the patient's room at this time. Administered 3U of RI per SS as ordered. Patient tolerated well.
[2017-04-07 10:42] LABS: BAND % (MANUAL) 4 % (0-10); EOSINOPHILS % (MANUAL) 4 % (0-8); LYMPHOCYTES % (MANUAL) 30 % (20-40); MONOCYTES % (MANUAL) 10 % (2-10); NEUTROPHILS % (MANUAL) 52 % (42-75)
[2017-04-07 12:00] VITALS: BP 106/71
--- NOTE | 2017-04-07 12:03 | NUR ---
PRN Humulin R 10 units SO administered to L deltoid for FSBS 357 per sliding scale, client tolerated well.
--- NOTE | 2017-04-07 14:30 | NUR ---
Off 1:05/5149 lifted: Dr. Johnson (psych) came in and evaluated the patient. Per MD, patient is alert and oriented x 4. No longer gravely disabled. Ambulatory ad julia with steady gait. Patient is off 1:1 at this time and 5150 was lifted.
[2017-04-07 16:00] VITALS: BP 135/72
--- NOTE | 2017-04-07 16:00 | NUR ---
MD Communication: Abdominal US Results of patient's abdominal US were shown to MD. NNO made. MD spoke to the patient about the results. Continue with current plan of care.
--- NOTE | 2017-04-07 16:36 | NUR ---
Ativan 1 mg PO given: Patient noted with gross tremors, sweats, anxiety and mild agitation. CIWA 9, medicated patient with Ativan 1 mg PO as ordered. Will monitor for effectiveness.
[2017-04-07] MEDS: METFORMIN HCL 500 MG TABLET PO SCH (17:27)
--- NOTE | 2017-04-07 17:36 | NUR ---
Re-assessment: Ativan 1 mg PO JEMIMAWA 4, patient noted with less tremors, less sweating and less anxiety noted. PRN Ativan 1 mg PO as ordered. Will monitor for effectiveness. Addendum: 04/07/17 at 1804 by RYANNE SANCHESN CIWA 5
--- NOTE | 2017-04-07 19:13 | NUR ---
End of Shift Notes: Patient continues to be on 5-day Ativan taper as ordered. No adverse reactions noted. VS monitored closely. No significant abnormalities noted. No s/s of hypo/HTN noted. Withdrawal symptoms were closely monitored. Initial CIWA 5, patient presented with anxiety, agitation & tremors. Last CIWA 5 at 1736. BS monitored closely q AC with RI coverage per SS. No diabetic reactions noted. Patient compliant with diet and medication regimen. 1:1 and 5150 Dc'd today. Abdominal US done today and resulted. On fall and seizure precautions. Unable to participate in group and activities due to his withdrawal symptoms, however encouraged. Ativan 1 mg PO given at 1636 due to CIWA 9 with help after 1 hour. All needs met and attended. Will continue to monitor closely.
[2017-04-07 20:00] VITALS: BP 91/59
--- NOTE | 2017-04-07 20:00 | NUR ---
Start of Shift Notes Received a 51 y/o male admitted 04/03/2017 for etoh dependence. Px is Full Code, has allergies on Vicodin and on DM diet. During the rounds at 2000, px complained of moderate anxiety and mild tremors. Bed on lowest position with side rails x2 up for safety. Call light within reach. We'll continue to monitor.
[2017-04-07] MEDS ORDERED: LORAZEPAM 1 MG TABLET PO SCH (21:00)
[2017-04-07] MEDS ORDERED: GABAPENTIN 300 MG CAPSULE PO SCH (21:00)
[2017-04-07] MEDS: LISINOPRIL 20 MG TABLET PO SCH (21:09)
--- NOTE | 2017-04-07 21:14 | NUR ---
Accucheck Px's blood sugar is 143 mg/dl. Humulin R 2 "u" on sliding scale given SQ on right upper quadrant of the abdomen. We'll continue to monitor.
[2017-04-07] MEDS ORDERED: hydrALAZINE HCL 50 MG TABLET PO PRN (22:00)
[2017-04-07] MEDS: ACETAMINOPHEN 325 MG TABLET PO PRN (23:20)
--- NOTE | 2017-04-07 23:20 | NUR ---
PRN meds and C diff test Px verbalized high anxiety and left abdominal pain 6-710. Ativan 1 mg/tab, 1 tab and Tylenol 325 mg/tab, 2 tabs given PO as PRN meds. Stool sample sent to lab for C diff test as ordered. We'll continue to monitor.
[2017-04-08] VITALS: BP 110/74
[2017-04-08] MEDS: LORAZEPAM 1 MG TABLET PO PRN ×2 (01:04→11:11)
--- NOTE | 2017-04-08 01:04 | NUR ---
Ativan PRN Px is still awake, reported heightened anxiety, agitation, visual and auditory hallucinations, moderate hand tremors, body pains. CIWA 17. Ativan 1 mg/tab, 2 tabs given PO as PRN med. We'll continue to monitor.
[2017-04-08 04:00] VITALS: BP 118/69
--- NOTE | 2017-04-08 04:00 | NUR ---
CIWA deferred CIWA deferred due to the px is asleep. To assess if the px is awake per doctor's order. We'll continue to monitor.
--- NOTE | 2017-04-08 07:28 | NUR ---
End of Shift Notes 51 y/o male admitted 04/03/2017 for etoh dependence. Px is Full Code, has allergies on Vicodin and on DM diet. During the shift, px complained of moderate anxiety and mild tremors. All pertinent notes are already noted. Bed on lowest position with side rails x2 up for safety. Call light within reach. We'll continue to monitor.
--- NOTE | 2017-04-08 07:30 | NUR ---
Start of Shift Notes: Received patient in her room. Alert, oriented x 4. Verbally responsive. On 1:1. Respirations even and unlabored. No SOB noted. Skin warm and dry to touch. Abdomen soft and non-distended with (+) BS in all 4 quadrants. No complains of N/V or constipation noted. Bladder soft and non-distended. No complains of dysuria noted. Ambulatory with steady gait. Patient is a 51 year old male admitted for ETOH dependence who was placed on a 5-day Ativan taper as ordered. No adverse reactions noted. Has past medical hx of anxiety and depression. Allergic to Vicodin. FULL CODE. Regular diet. On fall and seizure precautions. Educated patient on the current plan of care. Encouraged oral fluid intake and encouraged group participation to learn new skills to prevent relapse. Will continue to monitor.
[2017-04-08] MEDS: BLOOD SUGAR DIAGNOSTIC 1 EACH STRIP VI SCH ×4 (07:49→21:45)
[2017-04-08] MEDS: LIPASE/PROTEASE/AMYLASE 4200 UNITS CAPSULE.DR PO SCH ×3 (07:51→16:42)
[2017-04-08 08:00] VITALS: BP 123/69
--- NOTE | 2017-04-08 08:00 | NUR ---
MD Communication: BS Patient's blood sugar 520 AC breakfast. Patient stated that he had cereal with mild for breakfast, 2 nutrigrain bars, and coffee with milk. Diabetic diet was reinforced. Patient requires further teaching and understanding. Non-compliant with current diet regimen at this time. No s/s of hyperglycemia noted. Notified Dr. Choudhary. NNO at this time.
[2017-04-08 08:10] LABS: BASOPHILS % (AUTO) 0.9 % (0.0-2.0); EOSINOPHILS # (AUTO) 0.1 K/uL (0.0-0.7); HEMATOCRIT 37.4 % (36.7-47.1); HEMOGLOBIN 12.7 g/dL (12.5-16.3); MEAN CORPUSCULAR HEMOGLOBIN 30.9 uug (23.8-33.4); MEAN CORPUSCULAR HGB CONC 34 g/dL (32.5-36.3); MEAN CORPUSCULAR VOLUME 91.4 fL (73.0-96.2); MONOCYTES # (AUTO) 0.4 K/uL (2.0-10.0); MONOCYTES % (AUTO) 12.4 % (0.0-11.0); NEUTROPHILS # (AUTO) 1.6 K/uL (1.8-8.9); NEUTROPHILS % (AUTO) 50.7 % (38.5-71.5); PLATELET COUNT (AUTO) 81 K/uL (152-348); RED BLOOD CELL COUNT(AUTO) 4.09 MIL/uL (4.06-5.63); WHITE BLOOD COUNT (AUTO) 3.2 K/uL (3.6-10.2)
[2017-04-08 08:17] LABS: BILIRUBIN,DIRECT 0.2 mg/dL (0.0-0.2); BILIRUBIN,TOTAL 0.6 mg/dL (0.2-1.0); CREATININE 1.1 mg/dL (0.6-1.3); MAGNESIUM 1.8 mg/dL (1.8-2.4); POTASSIUM 4.8 mmol/L (3.5-5.1); TOTAL PROTEIN, SERUM 6.6 g/dL (6.4-8.2)
[2017-04-08] MEDS: AMLODIPINE 10 MG TABLET PO SCH (08:19)
[2017-04-08] MEDS: METFORMIN HCL 500 MG TABLET PO SCH ×2 (08:20→17:07)
[2017-04-08] MEDS: FLUOXETINE HCL 20 MG CAPSULE PO SCH (08:20)
[2017-04-08] MEDS: GABAPENTIN 300 MG CAPSULE PO SCH ×3 (08:21→21:30)
[2017-04-08] MEDS: FOLIC ACID 1 MG TABLET PO SCH (08:21)
[2017-04-08] MEDS: MULTIVITAMINS,THERAPEUTIC TABLET PO SCH (08:22)
[2017-04-08] MEDS: glipiZIDE XL 5 MG TABCR PO SCH (08:22)
[2017-04-08] MEDS: THIAMINE HCL 100 MG TABLET PO SCH (08:22)
[2017-04-08] MEDS: FUROSEMIDE 40 MG TABLET PO SCH (08:22)
[2017-04-08] MEDS: INSULIN REGULAR, HUMAN 300 UNIT/3 ML VIAL SQ PRN ×4 (08:26→21:34)
[2017-04-08] MEDS: METOPROLOL SUCCINATE XL 50 MG TAB.SR.24H PO SCH (08:30)
[2017-04-08] MEDS ORDERED: LORAZEPAM 1 MG TABLET PO SCH (09:00)
[2017-04-08] MEDS ORDERED: INSULIN DETEMIR 300 UNIT/3 ML CARTRIDGE SQ SCH ×2 (09:00→21:00)
[2017-04-08] MEDS: NICOTINE 14 MG/24HR PATCH TD SCH (09:00)
--- NOTE | 2017-04-08 09:04 | NUR ---
Nicotine 14 mg not administered: Patient refused Nicotine patch at this time. Educated patient on smoking cessation. Discouraged patient to smoke cigarettes. Discussed risk and benefits but patient still refused. Will continue to monitor.
[2017-04-08 10:58] LABS: BAND % (MANUAL) 3 % (0-10); EOSINOPHILS % (MANUAL) 4 % (0-8); LYMPHOCYTES % (MANUAL) 35 % (20-40); MONOCYTES % (MANUAL) 10 % (2-10); NEUTROPHILS % (MANUAL) 48 % (42-75)
[2017-04-08] MEDS: ONDANSETRON ODT 4 MG TAB.RAPDIS SL PRN (11:10)
--- NOTE | 2017-04-08 11:11 | NUR ---
MD Communication/Ativan 2 mg PO PRN given: Patient noted with x 1 episode of vomiting. Noted with gross tremors, sweats, and complains of chills and hot flashses. CIWA 16. Notified Dr. Choudhary. Per , ok to given Ativan 2 mg PO as ordered and to continue with current plan of care.
--- NOTE | 2017-04-08 12:11 | NUR ---
Re-assessment: Ativan 2 mg PO PRN/Zofran 4mg SL: CIWA 6. Patient verbalizes relief from nausea. No further episodes of emesis noted. Less anxiety, less agitation and less sweating noted.
[2017-04-08 12:44] VITALS: BP 124/77
[2017-04-08] MEDS: LORAZEPAM 1 MG TABLET PO SCH ×2 (14:32→21:32)
[2017-04-08 16:00] VITALS: BP 125/77
[2017-04-08] MEDS: ACETAMINOPHEN 325 MG TABLET PO PRN (16:50)
--- NOTE | 2017-04-08 16:50 | NUR ---
Tylenol 650 mg PO given: Patient noted with LUQ pain. Area is non-tended to touch. Medicated patient with Tylenol 650 mg PO as ordered. Will monitor for effectiveness.
--- NOTE | 2017-04-08 17:50 | NUR ---
Re-assessment: Tylenol Per patient, PRN Tylenol was mildly effective in reducing LUQ pain. Notified MD Choudhary. Per hubert JEFFERSON to give Mylanta and Miralax.
--- NOTE | 2017-04-08 18:01 | NUR ---
Mylanta 30 cc PO given: Patient complained of abdominal pain to the left side. MD Choudhary made aware. Medicated patient with Mylanta 30 cc PO as ordered per MD. Will monitor for effectiveness.
--- NOTE | 2017-04-08 19:01 | NUR ---
Re-assessment: Mylanta Per patient, PRN Mylanta was mildly effective in reducing abdominal pain.
--- NOTE | 2017-04-08 19:05 | NUR ---
Start of Shift Patient Received. Patient is in activities room participating in group meeting. Patient is a 51 year male admitted on 04/03/17 for ETOH Dependence under the care of Dr. Stack. Patient was started on Ativan taper to be completed on 04/10. Patient verbalizes allergies to Vicodin, wishes to be full code, following a CCHO Diet, placed on fall and seizure precautions, and skin noted intact. Past medical history of Anxiety, Depression, DM, HTN, Pancreatitis, Asthma, History of seizures. Per endorsement, patient was covered for insulin as ordered throughout the shift. patient was given PRN Ativan 2mg, Zofran, Tylenol, and Maalox with all medications noted to be effective. Last noted CIWA 3. All needs attended to promptly. Will continue plan of care as ordered.
--- NOTE | 2017-04-08 19:07 | NUR ---
End of Shift Notes: Patients 5-day Ativan taper modified today. No adverse reactions noted. VS monitored closely. No significant abnormalities noted. No s/s of hypo/HTN noted. Withdrawal symptoms were closely monitored. Initial CIWA 11, patient presented with anxiety, agitation & tremors. CIWA at 1111 became 16, showing increased agitation, anxiety, sweats and tremors. Medicated patient with Ativan 2 mg PO at 1111.Tylenol 650 mg PO at 1650 and Mylanta at 1801. Last CIWA 3 . BS monitored closely q AC with RI coverage per SS. No diabetic reactions noted. Patient is non compliant with diet . BS AC breakfast 520. MD aware. On fall and seizure precautions. Encouraged patient to participate in group and activities. No S/I or H/I noted. No AV hallucinations noted. All needs met and attended. Will continue to monitor closely.
[2017-04-08 20:05] VITALS: BP 138/80
[2017-04-08] MEDS ORDERED: diphenhydrAMINE 50 MG CAPSULE PO PRN (21:15)
[2017-04-08] MEDS: ATORVASTATIN 40 MG TABLET PO SCH (21:32)
[2017-04-08] MEDS: LISINOPRIL 20 MG TABLET PO SCH (21:32)
[2017-04-08] MEDS ORDERED: diphenhydrAMINE 50 MG CAPSULE ONE (21:39)
[2017-04-08] MEDS ORDERED: diphenhydrAMINE 50 MG CAPSULE PO ONE (22:00)
[2017-04-08] MEDS ORDERED: IV NS 1000 ML 1,000 ML IV PRN (22:00)
[2017-04-08] MEDS ORDERED: KETOROLAC TROMETHAMINE 30 MG INJ IM ONE (22:00)
[2017-04-08 22:19] LABS: *BILIRUBIN,URIN NEGATIVE (NEGATIVE); *BLOOD, URINE NEGATIVE (NEGATIVE); *CLARITY,URINE CLEAR (CLEAR); *COLOR,URINE YELLOW (YELLOW); *KETONES,URINE NEGATIVE (NEGATIVE); *PROTEIN,URINE NEGATIVE (NEGATIVE); *UROBILINOGEN,URINE 0.2 E.U./dl (NORMAL); LEUKOCYTE ESTERASE ,URINE NEGATIVE (NEGATIVE); NITRITE, URINE NEGATIVE (NEGATIVE)
--- NOTE | 2017-04-08 22:20 | NUR ---
PRN Medication Administration/MD Communication/Blood Sugar Patient verbalizing intermittent abdominal discomfort and describes the pain as "dull and at times sharp in the upper right side." patient is verbalizing pain of 9/10. Patient also verbalizing inability of sleeping due to pain. Blood sugar check rendered and noted at 452. CN and MD made aware. Patient was re-educated on diet and importance of compliance. all extra snacks removed from bedside. Patient verbalized understanding. Insulin administered as per sliding scale. No new orders regarding insulin. MD made aware of pain and Toradol injection x1 dose. Also new order for IV Fluids of NS @ 100ml/hr. IV site started on right hand with 24 gauge. IV site patent dry, intact, and patent. Patient tolerated well. All needs attended to promptly. Will continue plan of care as ordered.
[2017-04-08 22:22] LABS: UGLUCOSE 2+ (NEGATIVE)
[2017-04-08 22:23] LABS: BACTERIA,URINE NONE SEEN /HPF (NONE SEEN); RBC,URINE 0-3 /HPF (0-3); SQUAMOUS EPITHELIAL CELL,UR NONE SEEN /HPF (NONE SEEN); WBC,URINE 0-3 /HPF (0-3)
[2017-04-08] MEDS ORDERED: IBUPROFEN 600 MG TABLET PO PRN (23:00)
--- NOTE | 2017-04-08 23:20 | NUR ---
PRN Medication Reassessment Patient is noted in his room, awake, alert and verbally responsive. Breathing even and non labored. Patient is tolerating fluids well and is able to verbalize "the pain has minimized to tolerable. I feel like the medication is working." PRN Bentyl and PRN Toradol noted to be effective. Will continue to monitor.
[2017-04-09] VITALS (7 sets, daily range): BP systolic 116–162; BP diastolic 76–96
[2017-04-09] MEDS ORDERED: diphenhydrAMINE 50 MG CAPSULE ONE (01:07)
[2017-04-09] MEDS: ACETAMINOPHEN 325 MG TABLET PO PRN ×2 (05:36→17:30)
--- NOTE | 2017-04-09 05:40 | NUR ---
PRN Medication Administration Patient noted awake and verbalizing increased pain of 6/10 upper right quadrant. PRN Tylenol administered as per order. Will continue to monitor.
--- NOTE | 2017-04-09 06:40 | NUR ---
PRN Medication Reassessment Patient was able to verbalize PRN Tylenol was effective in minimizing pain. All needs attended to promptly.
--- NOTE | 2017-04-09 07:20 | NUR ---
End of Shift Patient is in bed sleeping but easily aroused to verbal stimuli. Breathing even and non labored. Patient is a 51 year male admitted on 04/03/17 for ETOH Dependence under the care of Dr. Stack. Patient was started on Ativan taper to be completed on 04/10. Patient verbalizes allergies to Vicodin, Full Code, CCHO Diet, placed on fall and seizure precautions, and skin noted intact. Past medical history of Anxiety, Depression, DM, HTN, Pancreatitis, Asthma, History of seizures. Patient was given PRN Bentyl, Tylenol, and one time dose of Toradol, Benadryl x2, and was started on IV fluids of NS @100mls/hr. IV site to right hand with a 24 gauge. Last noted CIWA 6. All needs attended to promptly. Will endorse to continue plan of care as ordered.
--- NOTE | 2017-04-09 07:45 | NUR ---
START OF SHIFT Rcvd endorsement from ongoing nurse, client is in room, he is a/o x4. Client presents with depressed mood, flat affect, and clammy skin. He reports R upper abdomen pain 9/10, chills, stomach cramps, and fatigue. Client with peripheral IV 24G on R hand intact/patent running at prescribed rate Normal Saline, tolerating well (For Hydration). Encourage client to attend to group therapy for skills to maintain sober. Encourage client to increase PO fluid intake as tolerated to facilitate detox. Client is a 51 y/o male, admitted to [facility] for withdrawal from alcohol. PRN Bentyl 20mg Po for abdominal spasms, Toradol 30mg Inj IM for R upper abd pain, Tylenol 650mg PO for pain, Benadryl 50mg PO x 2 for inability to sleep, client slept 1 hr. Client is on modified 6 day Ativan, tolerating well. Last CIWA 6 @ 0400. He reports a hx of seizures, Client reports Allergies to Vicodin, full code, diabetic diet. Side rails x 2 up/padded. Seizure precautions. Call light within reach.
[2017-04-09] MEDS: LIPASE/PROTEASE/AMYLASE 4200 UNITS CAPSULE.DR PO SCH ×3 (07:47→17:04)
[2017-04-09] MEDS: BLOOD SUGAR DIAGNOSTIC 1 EACH STRIP VI SCH ×4 (07:47→20:47)
[2017-04-09] MEDS: METFORMIN HCL 500 MG TABLET PO SCH (08:07)
[2017-04-09] MEDS: MULTIVITAMINS,THERAPEUTIC TABLET PO SCH (08:07)
[2017-04-09] MEDS: NICOTINE 14 MG/24HR PATCH TD SCH (08:07)
[2017-04-09] MEDS: GABAPENTIN 300 MG CAPSULE PO SCH ×3 (08:07→21:28)
[2017-04-09] MEDS: THIAMINE HCL 100 MG TABLET PO SCH (08:07)
--- NOTE | 2017-04-09 08:07 | NUR ---
PRN Humulin R 4 units SQ administered to L deltoid for FSBS 240 per sliding scale. Client tolerated well. Client requires additional education on diabetic diet.
[2017-04-09 08:15] LABS: BASOPHILS % (AUTO) 1.2 % (0.0-2.0); BILIRUBIN,DIRECT 0.2 mg/dL (0.0-0.2); BILIRUBIN,TOTAL 0.6 mg/dL (0.2-1.0); CREATININE 0.9 mg/dL (0.6-1.3); EOSINOPHILS # (AUTO) 0.1 K/uL (0.0-0.7); EOSINOPHILS % (AUTO) 3.8 % (0.0-7.0); HEMATOCRIT 34.9 % (36.7-47.1); LYMPHOCYTES # (AUTO) 1.4 K/uL (20.0-40.0); MAGNESIUM 1.8 mg/dL (1.8-2.4); MEAN CORPUSCULAR HEMOGLOBIN 30.6 uug (23.8-33.4); MEAN CORPUSCULAR HGB CONC 35 g/dL (32.5-36.3); MEAN CORPUSCULAR VOLUME 88.7 fL (73.0-96.2); MONOCYTES # (AUTO) 0.5 K/uL (2.0-10.0); NEUTROPHILS # (AUTO) 1.6 K/uL (1.8-8.9); PLATELET COUNT (AUTO) 93 K/uL (152-348); POTASSIUM 4.2 mmol/L (3.5-5.1); RED BLOOD CELL COUNT(AUTO) 3.94 MIL/uL (4.06-5.63); TOTAL PROTEIN, SERUM 6.6 g/dL (6.4-8.2); WHITE BLOOD COUNT (AUTO) 3.7 K/uL (3.6-10.2)
[2017-04-09] MEDS: FUROSEMIDE 40 MG TABLET PO SCH (08:15)
[2017-04-09] MEDS: glipiZIDE XL 5 MG TABCR PO SCH (08:15)
[2017-04-09] MEDS: METOPROLOL SUCCINATE XL 50 MG TAB.SR.24H PO SCH (08:21)
[2017-04-09] MEDS ORDERED: INSULIN DETEMIR 300 UNIT/3 ML CARTRIDGE SQ SCH (09:00)
[2017-04-09] MEDS ORDERED: LORAZEPAM 1 MG TABLET PO SCH (09:00)
[2017-04-09 09:40] LABS: BAND % (MANUAL) 2 % (0-10); EOSINOPHILS % (MANUAL) 4 % (0-8); LYMPHOCYTES % (MANUAL) 36 % (20-40); MONOCYTES % (MANUAL) 13 % (2-10); NEUTROPHILS % (MANUAL) 45 % (42-75)
[2017-04-09] MEDS: FLUOXETINE HCL 20 MG CAPSULE PO SCH (09:48)
[2017-04-09] MEDS: FOLIC ACID 1 MG TABLET PO SCH (09:48)
[2017-04-09] MEDS: AMLODIPINE 10 MG TABLET PO SCH (09:49)
--- NOTE | 2017-04-09 11:00 | NUR ---
Client removed Hep lock.
[2017-04-09] MEDS: INSULIN REGULAR, HUMAN 300 UNIT/3 ML VIAL SQ PRN ×3 (11:41→20:51)
--- NOTE | 2017-04-09 11:41 | NUR ---
PRN Humulin R 3 units SQ administered to L deltoid for FSBS 162 per sliding scale. Client tolerated well. Client requires additional education on diabetic diet.
[2017-04-09] MEDS ORDERED: KETOROLAC TROMETHAMINE 30 MG INJ IM ONE ×2 (12:00→18:30)
[2017-04-09] MEDS: LIDOCAINE 5% PATCH TD SCH (12:08)
--- NOTE | 2017-04-09 12:09 | NUR ---
ONE Time Toradol 30mg INJ IM administered to R deltoid for R upper pain 01/08. Call light within reach.
--- NOTE | 2017-04-09 12:39 | NUR ---
Reassessment ONE Time Toradol 30mg INJ IM pain 2/10, but tolerable. Call light within reach.
[2017-04-09] MEDS ORDERED: TRAZODONE 100 MG TABLET PO PRN (13:45)
[2017-04-09] MEDS ORDERED: diphenhydrAMINE 50 MG CAPSULE PO PRN (14:15)
--- NOTE | 2017-04-09 17:06 | NUR ---
PRN Humulin R 4 units SQ administered to L deltoid for FSBS 204 per sliding scale. Client tolerated well. Client requires additional education on diabetic diet.
--- NOTE | 2017-04-09 17:30 | NUR ---
PRN Tylenol 650mg PO administered for R upper abd pain 12/08. Call light within reach
--- NOTE | 2017-04-09 18:30 | NUR ---
Reassessment PRN Tylenol 650mg PO, client reports R upper abd pain 8/10. Call light within reach
--- NOTE | 2017-04-09 18:48 | NUR ---
<abdominal pain; rule out SBO vs nephrolithiasis> Addendum: 04/09/17 at 1848 by AUSTIN MARTINEZ RN XR abdomen (1 view)
--- NOTE | 2017-04-09 19:15 | NUR ---
START OF SHIFT NOTE : Client is a 51 y/o male, admitted to [facility] for withdrawal from alcohol. Px has allergies to Vicodin, had 1x seizure last 3 or 4 years ago. Client completed modified 6 day Ativan, tolerated well. Pt. is on Fall , Seizure precautions . XR ABDOMEN (1 VIEW) taken , see results in the PC report. Last CIWA 6 @ 1600. He complains of increased level of anxiety, anhedonia , depressed mood. Safety measures in place : bed on lowest position with side rails x2 up for safety, call light within reach. Will continue to monitor closely and offer help.
--- NOTE | 2017-04-09 19:20 | NUR ---
ONE Time Toradol 30mg INJ IM administered to R deltoid for R upper pain /10. Call light within reach. Incoming nurse to reassess.
--- NOTE | 2017-04-09 19:35 | NUR ---
END OF SHIFT Client is a 51 y/o male, admitted to [facility] for withdrawal from alcohol. PRN medicine given and noted per protocol. XR ABDOMEN (1 VIEW) taken. Client completed modified 6 day Ativan, tolerated well. Last CIWA 6 @ 1600. He reports a hx of seizures, Client reports Allergies to Vicodin, full code, diabetic diet. Side rails x 2 up/padded. Seizure precautions. Call light within reach.
[2017-04-09] MEDS ORDERED: IBUP-1955 PO (20:17)
[2017-04-09] MEDS ORDERED: FLUO-120 PO (20:17)
[2017-04-09] MEDS ORDERED: METF500T3 PO (20:17)
[2017-04-09] MEDS ORDERED: FURO40TA5 PO (20:17)
[2017-04-09] MEDS ORDERED: DICY20TA28 PO (20:17)
[2017-04-09] MEDS ORDERED: INSU100I19 SQ (20:17)
[2017-04-09] MEDS ORDERED: METO50TA7 PO (20:17)
[2017-04-09] MEDS ORDERED: TRAZ-147 PO (20:17)
[2017-04-09] MEDS ORDERED: AMLO10TA2 PO (20:17)
[2017-04-09] MEDS ORDERED: ATOR40TA PO (20:17)
[2017-04-09] MEDS ORDERED: LISI-603 PO (20:17)
[2017-04-09] MEDS ORDERED: LIDO30AD10 TD (20:17)
[2017-04-09] MEDS ORDERED: GABA-534 PO (20:17)
[2017-04-09] MEDS ORDERED: GLIP-16 PO (20:17)
[2017-04-09] MEDS ORDERED: LIPA1CAP27 PO (20:17)
[2017-04-09] MEDS ORDERED: TRAZ-144 PO (20:21)
[2017-04-09] MEDS: INSULIN DETEMIR 300 UNIT/3 ML CARTRIDGE SQ SCH (20:50)
--- NOTE | 2017-04-09 21:00 | NUR ---
PRN 4 UNITS SQ REGULAR INSULIN YM=520 , PRN 4 UNITS SQ REGULAR INSULIN GIVEN ORDERED
--- NOTE | 2017-04-09 21:00 | NUR ---
PRN TRAZODONE Pt. complains of sleeplessness. PRN TRAZODONE given as ordered. Safety measures in place : bed on lowest position with side rails x2 up for safety, call light within reach. Will continue to monitor closely and offer help.
[2017-04-09] MEDS: LISINOPRIL 20 MG TABLET PO SCH (21:28)
[2017-04-09] MEDS: ATORVASTATIN 40 MG TABLET PO SCH (21:28)
--- NOTE | 2017-04-09 22:00 | NUR ---
RE-ASSESSMENT TRAZODONE Pt. is sleeping, RR=16 unlabored and even. Safety measures in place : bed on lowest position with side rails x2 up for safety, call light within reach. Will continue to monitor closely and offer help.
[2017-04-09] MEDS: TRAZODONE 100 MG TABLET PO PRN ×2 (23:01→23:32)
[2017-04-09] MEDS ORDERED: TRAZODONE 100 MG TABLET ONE (23:13)
[2017-04-10 04:00] VITALS: BP 145/85
--- NOTE | 2017-04-10 06:33 | NUR ---
END OF SHIFT NOTE : Client is a 51 y/o male, admitted to [facility] for withdrawal from alcohol. Px has allergies to Vicodin, had 1x seizure last 3 or 4 years ago. Client completed modified 6 day Ativan, tolerated well. Pt. is on Fall , Seizure precautions . XR ABDOMEN (1 VIEW) taken , see results in the PC report. Pt remains compliant with the treatment plan. PRN TRAZODONE given during my shift. V/S remain WNL. RR=16, even and unlabored, lungs clear upon auscultation, abdomen soft and non- distended. Pt denies nausea, vomiting and diarrhea. BS was 246 in HS, covered with 4 Units Regular Insulin. CIWA taken when pt. was alert during the night, LAST CIWA=2 at 0400 , YEIBKW=367 ml, voided x2 , slept 5 hours. Safety measures in place : bed on lowest position with side rails x2 up for safety, call light within reach. Will continue to monitor closely and offer help.
--- NOTE | 2017-04-10 07:05 | NUR ---
Start of Shift Endorsement received from nightshift nurse. Pt is a 51 y/o male admitted for alcohol dependence. Pt has been placed on a 5 day Ativan taper. Pt has completed the taper and has been scheduled to be discharged today. PT is tolerating the detox AEB CIWA 2. PT received PRN Trazodone. PT reports sleeping 5 hours. All discharge documentation and education has been completed. PT reports readiness for discharge. Full Code. VS WNL. PT is alert and oriented x4. Pt is in STABLE condition at this time. Remains compliant with medication and diet regimen. All needs have been met, All safety measures in place per hospital policy. Bed in lowest position, side rails up x2, call-light within reach. Will continue to monitor
[2017-04-10 08:00] VITALS: BP 109/75
[2017-04-10] MEDS: AMLODIPINE 10 MG TABLET PO SCH (08:11)
[2017-04-10] MEDS: FOLIC ACID 1 MG TABLET PO SCH (08:11)
[2017-04-10] MEDS: FUROSEMIDE 40 MG TABLET PO SCH (08:11)
[2017-04-10] MEDS: THIAMINE HCL 100 MG TABLET PO SCH (08:11)
[2017-04-10] MEDS: FLUOXETINE HCL 20 MG CAPSULE PO SCH (08:11)
[2017-04-10] MEDS: MULTIVITAMINS,THERAPEUTIC TABLET PO SCH (08:11)
[2017-04-10] MEDS: GABAPENTIN 300 MG CAPSULE PO SCH (08:11)
[2017-04-10 08:12] VITALS: BP 109/75
[2017-04-10] MEDS: LIDOCAINE 5% PATCH TD SCH (08:12)
[2017-04-10] MEDS: METOPROLOL SUCCINATE XL 50 MG TAB.SR.24H PO SCH (08:12)
[2017-04-10] MEDS: glipiZIDE XL 5 MG TABCR PO SCH (08:12)
[2017-04-10] MEDS: LIPASE/PROTEASE/AMYLASE 4200 UNITS CAPSULE.DR PO SCH ×2 (08:12→11:30)
[2017-04-10] MEDS: NICOTINE 14 MG/24HR PATCH TD SCH (08:12)
[2017-04-10] MEDS: BLOOD SUGAR DIAGNOSTIC 1 EACH STRIP VI SCH ×2 (08:21→11:30)
[2017-04-10] MEDS: INSULIN DETEMIR 300 UNIT/3 ML CARTRIDGE SQ SCH (08:53)
[2017-04-10] MEDS ORDERED: METFORMIN XR 500 MG TAB.SR.24H PO SCH (09:00)
--- NOTE | 2017-04-10 12:10 | NUR ---
Discharge note Pt has been discharged from [facility] PT is in Stable condition, VS WNL. Denies suicidal and homicidal ideations at this time. . All documentation has been completed, paperwork signed and dated. Pt left with all of his belongings, medications and prescriptions. Pt has been discharged from [facility] [place] on 04/10/17 at 1210. has been Notified.
== END 2017-04-10 12:27 | disposition home or self-care (01) | DRG 895 ==
LOC: SRC 22:55
PROVIDERS: ADMIT Internal Medicine; ATTEND Internal Medicine
PROC: HZ2ZZZZ Detoxification Services for Substance Abuse Treatment (ICD-10-PCS; principal; 2017-04-03)
PROC: HZ41ZZZ Group Counseling for Substance Abuse Treatment, Behavioral (ICD-10-PCS; 2017-04-08)
DX: F10.232 Alcohol dependence with withdrawal with perceptual disturbance (principal); D61.818 Other pancytopenia; E87.4 Mixed disorder of acid-base balance; K86.0 Alcohol-induced chronic pancreatitis; F33.1 Major depressive disorder, recurrent, moderate; E87.0 Hyperosmolality and hypernatremia; K70.10 Alcoholic hepatitis without ascites; F10.231 Alcohol dependence with withdrawal delirium; E11.65 Type 2 diabetes mellitus with hyperglycemia; I15.8 Other secondary hypertension; K70.0 Alcoholic fatty liver; Y90.9 Presence of alcohol in blood, level not specified; F17.210 Nicotine dependence, cigarettes, uncomplicated; Z82.3 Family history of stroke; Z79.4 Long term (current) use of insulin; F41.9 Anxiety disorder, unspecified; J45.20 Mild intermittent asthma, uncomplicated; E86.0 Dehydration; E78.5 Hyperlipidemia, unspecified
CPT/HCPCS: 36415; 70030-TC; 74000; 76700; 80307; 82746; 83550; 83690; 83735; 84100; 85025; 85730; 86580; 86592; 86625; 86705; 86803; 87046; 87340; 87806; 90686; 90732; A4663; G0480; J1815; J1885; J2405; J3411; J7030; J8499; Q0162; Q0163

== ENCOUNTER 2017-04-03 21:51 | Emergency (ER) | payer OTHER ==
[~2017-04-03] VITALS: Ht 182.9 cm; Wt 108.9 kg
--- NOTE | 2017-04-03 22:24 | NUR ---
Dr Johnson into eval Patient. Denied SI. Dr Johnson asked several times about SI but patient denies several times. Patient only states ETOH
[2017-04-03 22:29] LABS: *BILIRUBIN,URIN NEGATIVE (NEGATIVE); *BLOOD, URINE 2+ (NEGATIVE); *CLARITY,URINE SLIGHTLY CLOUDY (CLEAR); *COLOR,URINE DARK YELLOW (YELLOW); *KETONES,URINE TRACE (NEGATIVE); LEUKOCYTE ESTERASE ,URINE NEGATIVE (NEGATIVE); NITRITE, URINE NEGATIVE (NEGATIVE); UGLUCOSE NEGATIVE (NEGATIVE)
[2017-04-03 22:36] LABS: *AMPHETAMINE, URINE NEGATIVE (NEGATIVE); *BARBITURATE, URINE NEGATIVE (NEGATIVE); *CANNABINOID, URINE NEGATIVE (NEGATIVE); *COCCAINE, URINE NEGATIVE (NEGATIVE); *OPIATE, URINE NEGATIVE (NEGATIVE); *PHENCYCLIDINE SCREEN,URINE NEGATIVE (NEGATIVE)
[2017-04-03 22:42] LABS: *PROTEIN,URINE 3+ (NEGATIVE)
[2017-04-03 22:43] LABS: BACTERIA,URINE NONE SEEN /HPF (NONE SEEN); MUCUS,URINE FEW /LPF (0-FEW); SQUAMOUS EPITHELIAL CELL,UR FEW /HPF (NONE SEEN); WBC,URINE 0-3 /HPF (0-3)
--- NOTE | 2017-04-03 22:46 | NUR ---
Patient D/C'ed with [facility] staff members back to [facility] via wheelchair
[2017-04-04] MEDS ORDERED: AMYL1CAP58 PO (00:45)
[2017-04-04] MEDS ORDERED: FLUO40CA49 PO (00:45)
[2017-04-04] MEDS ORDERED: METO-306 PO (00:45)
[2017-04-04] MEDS ORDERED: INSU100V11 SQ (00:45)
[2017-04-04] MEDS ORDERED: INSU100V11 (00:45)
[2017-04-04] MEDS ORDERED: GLIP5TAB26 PO (00:45)
[2017-04-04] MEDS ORDERED: INSU100I19 SQ (00:45)
[2017-04-04] MEDS ORDERED: INSU200I SQ (00:45)
[2017-04-04] MEDS ORDERED: ATOR40TA PO ×2 (00:45)
[2017-04-04] MEDS ORDERED: FURO40TA5 PO (00:45)
[2017-04-04] MEDS ORDERED: AMLO10TA2 PO (00:45)
[2017-04-04] MEDS ORDERED: LISI40TA4 PO (00:45)
== END 2017-04-03 22:48 | disposition home or self-care (01) ==
LOC: ER 21:51
DX: F10.129 Alcohol abuse with intoxication, unspecified (principal); E11.9 Type 2 diabetes mellitus without complications
CPT/HCPCS: 80307; 81001; 93005; 99285; A4663